=== PATIENT | male | born 1990 | race Caucasian/White ===

== ENCOUNTER 2017-05-21 18:58 | Emergency (ER) | payer OTHER ==
[~2017-05-21] VITALS: Ht 175.3 cm; Wt 103.4 kg
[2017-05-21 21:07] LABS: PLATELET COUNT 325 x10^3mcL (130-400); RED CELL DISTRIBUTION WIDTH 13.7 % (11.5-14.5)
[2017-05-21 21:21] LABS: CALCIUM 9.2 mg/dL (8.5-10.1); CARBON DIOXIDE 24.9 mmol/L (21-32); CHLORIDE SERUM 105 mmol/L (98-107); CREATININE SERUM 0.9 mg/dL (0.7-1.3); GFR1 > 60 mL/min; GLUCOSE SERUM 88 mg/dL (74-106); POTASSIUM SERUM 3.6 mmol/L (3.5-5.1); SODIUM SERUM 139 mmol/L (136-145)
[2017-05-21 21:37] LABS: BAND NEUTROPHIL 3 % (0-10); BASOPHIL 0 % (0-2); MONOCYTE 5 % (0-7); SEGMENTED NEUTROPHILS 82 % (37-75)
[2017-05-21 21:38] LABS: rbc morphology (normal/abnorm) NORMAL (NORMAL)
[2017-05-22 01:15] LABS: BASOPHIL % 0.1 % (0-2); PLATELET COUNT 291 x10^3mcL (130-400); RED CELL DISTRIBUTION WIDTH 13.7 % (11.5-14.5)
[2017-05-22 03:01] VITALS: BP 110/68
== END 2017-05-22 03:02 | disposition home or self-care (01) ==
LOC: ED 18:58
PROVIDERS: Emergency Medicine
DX: S42.021A Displaced fracture of shaft of right clavicle, initial encounter for closed fracture (principal); S22.31XA Fracture of one rib, right side, initial encounter for closed fracture; S50.312A Abrasion of left elbow, initial encounter; S50.311A Abrasion of right elbow, initial encounter; Z88.0 Allergy status to penicillin; V87.8XXA Person injured in other specified noncollision transport accidents involving motor vehicle (traffic), initial encounter; Y93.55 Activity, bike riding; Y92.410 Unspecified street and highway as the place of occurrence of the external cause; Y99.8 Other external cause status
CPT/HCPCS: 90715; J1885; J2001; J2270; J3010